=== PATIENT | male | born 1960 | race Caucasian/White ===

== ENCOUNTER 2018-10-07 20:36 | Inpatient (IN) | payer OTHER ==
[~2018-10-07] VITALS: Ht 172.7 cm; Wt 131.2 kg
[~2018-10-07 20:36] MED LIST: LOTREL 10-40 M1 EACH; METFORMIN HCL500 M1; SYNTHROID75 MCG
--- OUTSIDE RECORDS SUMMARY | 2018-10-07 20:40 | XMS REPORT ---
Author Author [facility] [place] Address Unknown Phone Unavailable Care Team Providers Care Wax Coating Machine Tender Name Role Phone Unavailable Unavailable Payers Payer Name Policy Type Policy Number Effective Date Expiration Date Problems This patient has no known problems. Allergies, Adverse Reactions, Alerts This patient has no known allergies or adverse reactions. Medications This patient has no known medications.
[2018-10-07] MEDS ORDERED: LEVOFLOXACIN 500MG/D5W 100ML 100 ML IV SCH (21:30)
[2018-10-07] MEDS ORDERED: DIPHENHYDRAMINE HCL INJ 50 MG/ML VIAL IV ONE (21:30)
[2018-10-07 21:43] LABS: BASOPHILS # (AUTO) 0.1 (0.0-0.1); BASOPHILS % 0.7 % (0.0-1.0); EOSINOPHILS # (AUTO) 1.4 (0.0-0.4); EOSINOPHILS % 13.5 % (0.0-6.0); LYMPHOCYTES # (AUTO) 2.9 (1.0-3.2); MEAN CORPUSCULAR HEMOGLOBIN 31.9 pg (28-32); MEAN CORPUSCULAR HGB CONC 33.3 g/dL (31-35); MEAN CORPUSCULAR VOLUME 95.6 fL (81-99); MONOCYTES # (AUTO) 0.7 (0.2-0.8); MONOCYTES % 6.5 % (4.4-11.3); NEUTROPHILS # (AUTO) 5.2 (2.1-6.9); NEUTROPHILS % 50.7 % (38.7-80.0); PLATELET COUNT 316 x10e3/uL (140-360); RED BLOOD COUNT 4.08 x10e6/uL (4.3-5.7); RED CELL DISTRIBUTION WIDTH 13.2 % (11.7-14.4)
[2018-10-07 22:00] LABS: ALANINE AMINOTRANSFERASE 51 IU/L (0-55); ALBUMIN 3.9 g/dL (3.5-5.0); ALBUMIN/GLOBULIN RATIO 1.2 (0.8-2.0); ALKALINE PHOSPHATASE 88 IU/L (40-150); ANION GAP 17.1 mmol/L (8-16); BLOOD UREA NITROGEN 12 mg/dL (7-26); BUN/CREATININE RATIO 12 (6-25); CALCIUM 9.3 mg/dL (8.4-10.2); CARBON DIOXIDE 24 mmol/L (22-29); CHLORIDE 100 mmol/L (98-107); CREATININE, SERUM 1.01 mg/dL (0.72-1.25); EST GLOMERULAR FILTRATION RATE > 60 ML/MIN (60-); GLUCOSE 217 mg/dL (74-118); POTASSIUM 4.1 mmol/L (3.5-5.1); SODIUM 137 mmol/L (136-145)
[2018-10-07] MEDS ORDERED: DEXTROSE 50% SYRINGE 50 ML IV PRN (22:15)
[2018-10-07] MEDS ORDERED: ONDANSETRON HCL INJ 2MG/ML 2ML 2 MG/ML VIAL IV PRN (22:15)
[2018-10-07] MEDS ORDERED: HYDRALAZINE HCL 20 MG/ML VIAL IV PRN (22:15)
[2018-10-07] MEDS ORDERED: SODIUM CHLORIDE FLUSH 10 ML SYR INJ PRN (22:15)
[2018-10-07] MEDS: VANCOMYCIN 1GM/NS 250 ML 250 ML IV SCH (22:52)
[2018-10-07 23:20] VITALS: BP 131/63
[2018-10-07 23:45] VITALS: BP 131/63
[2018-10-07 23:58] VITALS: BP 131/63
[2018-10-08] VITALS (7 sets, daily range): BP systolic 109–139; BP diastolic 55–78
[2018-10-08] MEDS ORDERED: ASPIR 8181 MG (00:57)
[2018-10-08] MEDS ORDERED: JANUVIA100 MG PO (00:57)
[2018-10-08] MEDS ORDERED: GLIPIZIDE10 MG (00:58)
[2018-10-08] MEDS ORDERED: GLIPIZIDE5 MG PO (00:58)
[2018-10-08] MEDS ORDERED: TRESIBA SC (01:02)
[2018-10-08] MEDS ORDERED: ATORVASTATIN CA40 MG PO (01:02)
[2018-10-08] MEDS: DIPHENHYDRAMINE HCL INJ 50 MG/ML VIAL IV PRN ×2 (03:18→08:14)
[2018-10-08 05:39] LABS: BASOPHILS # (AUTO) 0.1 (0.0-0.1); BASOPHILS % 0.6 % (0.0-1.0); EOSINOPHILS # (AUTO) 1.2 (0.0-0.4); EOSINOPHILS % 12.6 % (0.0-6.0); HEMATOCRIT 36.1 % (38.2-49.6); HEMOGLOBIN 12.2 g/dL (14.0-18.0); LYMPHOCYTES # (AUTO) 2.8 (1.0-3.2); LYMPHOCYTES % 30.2 % (18.0-39.1); MEAN CORPUSCULAR HGB CONC 33.8 g/dL (31-35); MEAN CORPUSCULAR VOLUME 94.8 fL (81-99); MONOCYTES # (AUTO) 0.8 (0.2-0.8); MONOCYTES % 8.5 % (4.4-11.3); NEUTROPHILS # (AUTO) 4.5 (2.1-6.9); NEUTROPHILS % 47.7 % (38.7-80.0); PLATELET COUNT 307 x10e3/uL (140-360); RED BLOOD COUNT 3.81 x10e6/uL (4.3-5.7); RED CELL DISTRIBUTION WIDTH 13.2 % (11.7-14.4)
[2018-10-08 05:57] LABS: ALANINE AMINOTRANSFERASE 38 IU/L (0-55); ALBUMIN 3.3 g/dL (3.5-5.0); ALBUMIN/GLOBULIN RATIO 1.3 (0.8-2.0); ALKALINE PHOSPHATASE 64 IU/L (40-150); ANION GAP 12.5 mmol/L (8-16); BLOOD UREA NITROGEN 12 mg/dL (7-26); BUN/CREATININE RATIO 14 (6-25); CALCIUM 8.6 mg/dL (8.4-10.2); CARBON DIOXIDE 24 mmol/L (22-29); CHLORIDE 104 mmol/L (98-107); CREATININE, SERUM 0.87 mg/dL (0.72-1.25); EST GLOMERULAR FILTRATION RATE > 60 ML/MIN (60-); GLUCOSE 169 mg/dL (74-118); POTASSIUM 4.5 mmol/L (3.5-5.1); SODIUM 136 mmol/L (136-145)
[2018-10-08] MEDS: GLIPIZIDE 5 MG TAB PO SCH ×2 (08:00→17:00)
[2018-10-08] MEDS: METFORMIN HCL 500 MG TAB CR PO SCH ×2 (08:00→17:00)
[2018-10-08] MEDS: METHYLPREDNISOLONE SOD SUCC 40 MG/ML VIAL 1ML IV SCH ×2 (08:13→21:07)
[2018-10-08] MEDS: INSULIN REGULAR, HUMAN 100 UNIT/1 ML 3ML VIAL SQ SCH ×4 (08:13→21:32)
[2018-10-08] MEDS: ASPIRIN 81 MG CHEW TAB PO SCH (08:13)
[2018-10-08] MEDS: PANTOPRAZOLE SOD 40 MG TABEC PO SCH (08:14)
[2018-10-08] MEDS: LEVOTHYROXINE SODIUM 50 MCG TAB PO SCH (08:14)
[2018-10-08] MEDS: TRESIBA SC SCH (08:14)
[2018-10-08] MEDS: BENAZEPRIL HCL 10 MG TAB PO SCH (08:14)
[2018-10-08] MEDS: SITAGLIPTIN 100 MG TAB PO SCH (08:14)
[2018-10-08] MEDS: AMLODIPINE BESYLATE 10 MG TAB PO SCH (08:14)
[2018-10-08] MEDS ORDERED: LEVOTHYROXINE SODIUM 75 MCG TAB PO SCH (09:00)
--- NOTE | 2018-10-08 09:15 | History and Physical ---
CHIEF COMPLAINT: Left leg redness, swelling since last 1 month and rash all over body since last 3 weeks. HISTORY OF PRESENT MEDICAL ILLNESS: Alnqv[age][id number][age][id number]-old pleasant male with past medical history of multiple medical problems, was admitted at [facility] last night with above complaints. Patient was seen by PCP, Dr. Hiram Murry for more than a month back with chief complaint of left lower extremity redness, swelling, wound after patient had left leg injury. Patient was started on clindamycin and Cipro. Patient took that for 10 days, then clindamycin was stopped. Then, patient was switched to Bactrim plus Cipro. Patient left leg wound got better, the redness and swelling was improving. Patient was given Bactrim for 10 days, and then left leg redness, swelling, wound was getting better. In the meantime when patient was started on clindamycin and Cipro, patient developed rash, generalized itching, severely itching rash. Then, patient came to my office yesterday with left leg swelling and redness coming back and generalized rash and itching persisting, and hence patient was sent to ER. In emergency room, patient was seen by emergency room doctor and admitted for further care and treatment. At present, the patient is lying comfortably in bed, in no apparent distress. No chest pain, no shortness of breath. No nausea, vomiting, diarrhea. No abdominal pain or loss of consciousness. No palpitations, no headaches. No hematemesis, no melena, no hematuria, no dysuria. No fever, no cough. No witnessed seizures. PAST MEDICAL HISTORY: 1. Diabetes mellitus type 2. 2. Hypertension. 3. Hyperlipidemia. 4. Morbid obesity. 5. Obstructive sleep apnea, on BiPAP. MEDICATIONS: As listed in chart. ALLERGIES: PENICILLIN. SURGICAL HISTORY: Lower back surgery many years back. SOCIAL HISTORY: No smoking, no alcohol, no illicit drug use. Lives with family. FAMILY HISTORY: Noncontributory. REVIEW OF SYSTEMS: As per HPI. PHYSICAL EXAMINATION: GENERAL: Patient is alert, awake, oriented x3, in no apparent distress, lying in bed. VITAL SIGNS: Temperature is 97, pulse is 67 per minute, respiratory rate is 18 per minute, blood pressure is 116/70, saturation is 96% on room air. SKIN: No cyanosis, no icterus, no pallor. HEENT: Normocephalic, atraumatic. PERRLA plus. NECK: Soft and supple. No JVD, no carotid bruit, no lymphadenopathy. LUNGS: Air entry bilaterally equal. HEART: S1 and S2. No murmur, no gallop, no rub. ABDOMEN: Soft, nontender. Bowel sounds plus. PROSPECTING DRILLER: Alert, awake, and oriented x3. No focal deficits. EXTREMITIES: No cyanosis, no clubbing, no edema. Peripheral pulses present. No calf pain. Left lower extremity swelling, redness plus. Skin, generalized macular rash plus. LABS: This morning, sodium 136, potassium 4.5, chloride 104, bicarb 24, BUN 12, creatinine 0.8, glucose 116. LFTs noted. White count 9.3, hemoglobin 12.2, hematocrit 36.1, platelets 307,000. Eosinophil 13.5, high. Cultures pending. ASSESSMENT: 1. Left lower extremity cellulitis. 2. Dermatitis, likely allergic, could be antibiotics related. 3. History of diabetes mellitus type 2. 4. Hypertension. 5. Hyperlipidemia. 6. Obstructive sleep apnea. PLAN: Admit patient to medical floor. Patient was started on IV vancomycin. Pancultures. ID consultation, Dr. Spence. Review dose of Solu-Medrol 40 mg IV q.12h. for 1 day for possible allergic dermatitis. Will also get venous Doppler of left lower extremity. Further care and treatment as per clinical course of patient in the hospital. Discussed with patient in detail. Job#: [id number]
[2018-10-08] MEDS: VANCOMYCIN 1GM/NS 250 ML 250 ML IV SCH ×2 (09:28→21:19)
[2018-10-08] MEDS: ENOXAPARIN SOD INJ 40 MG/0.4 ML SYR SC SCH (16:50)
[2018-10-08] MEDS ORDERED: NON-FORMULARY MEDICATION (Atorvastatin Calcium 40 MG) PO SCH (21:00)
[2018-10-08] MEDS: ATORVASTATIN 40 MG TAB PO SCH (21:07)
[2018-10-09] VITALS (8 sets, daily range): BP systolic 112–127; BP diastolic 69–79
[2018-10-09] MEDS: LEVOTHYROXINE SODIUM 50 MCG TAB PO SCH (06:42)
[2018-10-09] MEDS: GLIPIZIDE 5 MG TAB PO SCH ×2 (08:00→17:00)
[2018-10-09] MEDS: METFORMIN HCL 500 MG TAB CR PO SCH ×2 (08:00→17:00)
[2018-10-09] MEDS ORDERED: DIPHENHYDRAMINE HCL 25 MG CAP PO PRN (08:15)
[2018-10-09] MEDS: TRESIBA SC SCH (09:00)
[2018-10-09] MEDS: AMLODIPINE BESYLATE 10 MG TAB PO SCH (09:00)
[2018-10-09] MEDS: BENAZEPRIL HCL 10 MG TAB PO SCH (09:00)
[2018-10-09] MEDS: ASPIRIN 81 MG CHEW TAB PO SCH (09:00)
[2018-10-09] MEDS: SITAGLIPTIN 100 MG TAB PO SCH (09:00)
[2018-10-09] MEDS: PANTOPRAZOLE SOD 40 MG TABEC PO SCH (09:49)
[2018-10-09] MEDS: INSULIN REGULAR, HUMAN 100 UNIT/1 ML 3ML VIAL SQ SCH ×4 (09:50→21:42)
[2018-10-09] MEDS: METHYLPREDNISOLONE SOD SUCC 40 MG/ML VIAL 1ML IV SCH ×2 (09:50→21:42)
[2018-10-09] MEDS: VANCOMYCIN 1GM/NS 250 ML 250 ML IV SCH ×2 (09:53→21:42)
[2018-10-09] MEDS: MUPIROCIN 2% OINT 22 GM TUBE TOP SCH (09:53)
--- NOTE | 2018-10-09 14:43 | Consultation ---
DATE OF CONSULTATION: October 08, 2018 REASON FOR CONSULTATION: Cellulitis of the leg failing oral antibiotic and skin rash. HISTORY OF PRESENT ILLNESS: Mr. Singleton is a very pleasant gentleman. I did see him on October 08, 2018. I also discussed the case on the day of admission, which was October 07, 2018, and discussed the case with the emergency room physician. Mr. Singleton is a 57-year-old gentleman. He started to have redness and swelling of his right leg. He saw a physician and originally given clindamycin and Cipro. No improvement, but he started to have a rash a few days later. Clindamycin was stopped and switched to Bactrim. The rash persisted and got worse. The patient came to the emergency room because he was not feeling well and itching all over. The patient was admitted. When I saw the patient, he was also started on vancomycin and cefepime and he was given steroid. He is feeling better. PAST MEDICAL HISTORY: Hypertension. He also has history of diabetes and hypothyroidism. PAST SURGICAL HISTORY: He denies. ALLERGIES: NKA. SOCIAL HISTORY: Does not smoke. No drug abuse or alcohol abuse. FAMILY HISTORY: Noncontributory. REVIEW OF SYSTEMS HEENT: Negative. PULMONARY: Negative. CARDIAC: Negative. : Negative. SKIN: There is rash as mentioned above with itching all over. There are redness and swelling noted of the leg. MEDICATIONS: He is on amlodipine and Norvasc. He is on Lipitor, atorvastatin, Lotensin, Lovenox, insulin, Synthroid, metformin. PHYSICAL EXAMINATION GENERAL: Alert and oriented, does not seem to be in acute distress. VITALS: Stable. Currently afebrile. HEENT: Normocephalic. Does not appear icteric. NECK: Supple. CHEST: Clear. COR: No murmur. ABDOMEN: Soft. Bowel sounds present. No tenderness. EXTREMITIES: There is a maculopapular rash diffusely all over his body. The leg has erythema but seems to be better. Laboratory data reviewed and chart reviewed. IMPRESSION 1. Cellulitis of the leg. Failed oral antibiotics. Will put him on vancomycin. 2. Dermatitis, allergic reaction. Agree with Benadryl and a short course of steroids. 3. Hypertension. 4. Hypothyroidism. 5. Diabetes mellitus. Will follow with you. Discussed with internal medicine. Discussed with ER physician. Job#: [id number] MH
[2018-10-09] MEDS: ENOXAPARIN SOD INJ 40 MG/0.4 ML SYR SC SCH (17:12)
[2018-10-09] MEDS ORDERED: SODIUM CHLORIDE 0.9% 250ML 250 ML ONE (21:30)
[2018-10-09] MEDS: ATORVASTATIN 40 MG TAB PO SCH (21:42)
[2018-10-10] VITALS (7 sets, daily range): BP systolic 110–139; BP diastolic 73–87
[2018-10-10 07:42] LABS: BASOPHILS % 0.2 % (0.0-1.0); HEMOGLOBIN 12.4 g/dL (14.0-18.0); LYMPHOCYTES # (AUTO) 1.6 (1.0-3.2); LYMPHOCYTES % 13.2 % (18.0-39.1); MEAN CORPUSCULAR HEMOGLOBIN 32.7 pg (28-32); MEAN CORPUSCULAR HGB CONC 35.4 g/dL (31-35); MEAN CORPUSCULAR VOLUME 92.3 fL (81-99); MONOCYTES # (AUTO) 0.7 (0.2-0.8); MONOCYTES % 5.5 % (4.4-11.3); NEUTROPHILS # (AUTO) 9.4 (2.1-6.9); NEUTROPHILS % 80.2 % (38.7-80.0); PLATELET COUNT 274 x10e3/uL (140-360); RED BLOOD COUNT 3.79 x10e6/uL (4.3-5.7); RED CELL DISTRIBUTION WIDTH 13.2 % (11.7-14.4)
[2018-10-10 08:01] LABS: CARBON DIOXIDE 25 mmol/L (22-29); CHLORIDE 102 mmol/L (98-107); POTASSIUM 4.5 mmol/L (3.5-5.1); SODIUM 136 mmol/L (136-145)
[2018-10-10 08:02] LABS: ALANINE AMINOTRANSFERASE 35 IU/L (0-55); ALBUMIN 3.5 g/dL (3.5-5.0); ALBUMIN/GLOBULIN RATIO 1.2 (0.8-2.0); ALKALINE PHOSPHATASE 61 IU/L (40-150); ANION GAP 13.5 mmol/L (8-16); BLOOD UREA NITROGEN 18 mg/dL (7-26); BUN/CREATININE RATIO 20 (6-25); CALCIUM 9.1 mg/dL (8.4-10.2); CREATININE, SERUM 0.91 mg/dL (0.72-1.25); EST GLOMERULAR FILTRATION RATE > 60 ML/MIN (60-); GLUCOSE 226 mg/dL (74-118)
[2018-10-10] MEDS: LEVOTHYROXINE SODIUM 50 MCG TAB PO SCH (08:26)
[2018-10-10] MEDS: METFORMIN HCL 500 MG TAB CR PO SCH ×2 (08:26→17:22)
[2018-10-10] MEDS: PANTOPRAZOLE SOD 40 MG TABEC PO SCH (08:26)
[2018-10-10] MEDS: GLIPIZIDE 5 MG TAB PO SCH ×2 (08:27→17:22)
[2018-10-10] MEDS: METHYLPREDNISOLONE SOD SUCC 40 MG/ML VIAL 1ML IV SCH (08:27)
[2018-10-10] MEDS: ASPIRIN 81 MG CHEW TAB PO SCH (08:29)
[2018-10-10] MEDS: SITAGLIPTIN 100 MG TAB PO SCH (08:29)
[2018-10-10] MEDS: INSULIN REGULAR, HUMAN 100 UNIT/1 ML 3ML VIAL SQ SCH ×4 (08:48→21:07)
[2018-10-10] MEDS: BENAZEPRIL HCL 10 MG TAB PO SCH (08:48)
[2018-10-10] MEDS: VANCOMYCIN 1GM/NS 250 ML 250 ML IV SCH ×2 (08:48→21:05)
[2018-10-10] MEDS: AMLODIPINE BESYLATE 10 MG TAB PO SCH (08:48)
[2018-10-10] MEDS: TRESIBA SC SCH (08:49)
[2018-10-10] MEDS: MUPIROCIN 2% OINT 22 GM TUBE TOP SCH (08:49)
--- NOTE | 2018-10-10 15:06 | Progress Note ---
DATE: SUBJECTIVE: Mr. Singleton is doing better and redness seems to be better. PHYSICAL EXAMINATION GENERAL: He is currently alert, oriented, does not seem to be in acute distress. VITAL SIGNS: Stable. Currently afebrile. HEENT: He is nonicteric. NECK: Supple. CHEST: Clear. HEART: S1, S2. No murmur. ABDOMEN: Soft. EXTREMITIES: The legs seem to be better. The rash has faded. IMPRESSION 1. Cellulitis. 2. Dermatitis. 3. Allergic reaction. Seems to be better. Can switch to oral prednisone 5 mg p.o. daily for a few more days and local hydrocortisone. Cellulitis is better. Can probably discharge home tomorrow. Since we are not so sure which antibiotic lead to this, we will try oral Zyvox 600 mg p.o. b.i.d. for 7 days. Follow up as an outpatient. Job#: [id number] LPA
[2018-10-10] MEDS: ENOXAPARIN SOD INJ 40 MG/0.4 ML SYR SC SCH (17:22)
[2018-10-10] MEDS: ATORVASTATIN 40 MG TAB PO SCH (21:05)
[2018-10-11] VITALS: BP 116/47
[2018-10-11 04:00] VITALS: BP 135/80
[2018-10-11] MEDS: INSULIN REGULAR, HUMAN 100 UNIT/1 ML 3ML VIAL SQ SCH ×2 (07:30→12:49)
[2018-10-11 08:00] VITALS: BP 131/93
[2018-10-11 08:16] VITALS: BP 131/93
[2018-10-11] MEDS: GLIPIZIDE 5 MG TAB PO SCH (08:27)
[2018-10-11] MEDS: METFORMIN HCL 500 MG TAB CR PO SCH (08:27)
[2018-10-11] MEDS: PANTOPRAZOLE SOD 40 MG TABEC PO SCH (08:27)
[2018-10-11] MEDS: LEVOTHYROXINE SODIUM 50 MCG TAB PO SCH (08:27)
[2018-10-11] MEDS: SITAGLIPTIN 100 MG TAB PO SCH (08:28)
[2018-10-11] MEDS: ASPIRIN 81 MG CHEW TAB PO SCH (08:28)
[2018-10-11] MEDS: BENAZEPRIL HCL 10 MG TAB PO SCH (08:28)
[2018-10-11] MEDS: MUPIROCIN 2% OINT 22 GM TUBE TOP SCH (08:29)
[2018-10-11] MEDS: AMLODIPINE BESYLATE 10 MG TAB PO SCH (08:29)
[2018-10-11] MEDS: TRESIBA SC SCH (08:29)
[2018-10-11 09:00] LABS: BASOPHILS # (AUTO) 0.1 (0.0-0.1); BASOPHILS % 0.4 % (0.0-1.0); EOSINOPHILS # (AUTO) 0.1 (0.0-0.4); EOSINOPHILS % 0.5 % (0.0-6.0); HEMATOCRIT 36.7 % (38.2-49.6); HEMOGLOBIN 13.1 g/dL (14.0-18.0); LYMPHOCYTES % 32.8 % (18.0-39.1); MEAN CORPUSCULAR HEMOGLOBIN 32.6 pg (28-32); MEAN CORPUSCULAR HGB CONC 35.7 g/dL (31-35); MEAN CORPUSCULAR VOLUME 91.3 fL (81-99); MONOCYTES # (AUTO) 1.1 (0.2-0.8); MONOCYTES % 9.4 % (4.4-11.3); NEUTROPHILS # (AUTO) 6.8 (2.1-6.9); NEUTROPHILS % 56.1 % (38.7-80.0); PLATELET COUNT 252 x10e3/uL (140-360); RED BLOOD COUNT 4.02 x10e6/uL (4.3-5.7); RED CELL DISTRIBUTION WIDTH 13.2 % (11.7-14.4)
[2018-10-11] MEDS ORDERED: METHYLPREDNISOLONE SOD SUCC 40 MG/ML VIAL 1ML IV SCH (09:00)
[2018-10-11 09:16] LABS: ANION GAP 14.1 mmol/L (8-16); BLOOD UREA NITROGEN 18 mg/dL (7-26); BUN/CREATININE RATIO 18 (6-25); CALCIUM 9.1 mg/dL (8.4-10.2); CARBON DIOXIDE 27 mmol/L (22-29); CHLORIDE 101 mmol/L (98-107); CREATININE, SERUM 1.02 mg/dL (0.72-1.25); EST GLOMERULAR FILTRATION RATE > 60 ML/MIN (60-); GLUCOSE 169 mg/dL (74-118); POTASSIUM 4.1 mmol/L (3.5-5.1); SODIUM 138 mmol/L (136-145)
[2018-10-11] MEDS: VANCOMYCIN 1GM/NS 250 ML 250 ML IV SCH (10:00)
[2018-10-11 11:52] VITALS: BP 121/76
--- NOTE | 2018-10-11 14:49 | Progress Note ---
DATE: INFECTIOUS DISEASE PROGRESS NOTE SUBJECTIVE: Mr. Singleton is doing well. His review of systems is unremarkable. His leg is better. PHYSICAL EXAMINATION GENERAL: He is currently alert and oriented, does not seem to be in acute distress. VITAL SIGNS: Stable, currently afebrile. HEENT: Not icteric. NECK: Supple. CHEST: Clear. ABDOMEN: Soft. EXTREMITIES: The leg erythema is better. IMPRESSION AND PLAN 1. Patient with cellulitis of the leg, better. 2. Allergic dermatitis. He can change to Zyvox 600 mg p.o. b.i.d. since I am not so sure which drug led to this allergic reaction. Bib Grossman as an outpatient. Followup as an outpatient. Job#: [id number] PAVAN
[2018-10-11] MEDS ORDERED: ZYVOX600 MG PO (15:19)
== END 2018-10-11 15:57 | disposition home or self-care (01) | DRG 603 ==
LOC: ER 20:36 → ERHOLD 22:22 → MED/SURG3 22:59
PROVIDERS: ADMIT Internal Medicine; ATTEND Internal Medicine
DX: L03.116 Cellulitis of left lower limb (principal); Z68.41 Body mass index [BMI] 40.0-44.9, adult; I10 Essential (primary) hypertension; E03.9 Hypothyroidism, unspecified; E78.5 Hyperlipidemia, unspecified; K21.9 Gastro-esophageal reflux disease without esophagitis; E11.9 Type 2 diabetes mellitus without complications; E66.01 Morbid (severe) obesity due to excess calories; G47.33 Obstructive sleep apnea (adult) (pediatric); L27.0 Generalized skin eruption due to drugs and medicaments taken internally; T36.95XA Adverse effect of unspecified systemic antibiotic, initial encounter; Z79.82 Long term (current) use of aspirin; Z79.4 Long term (current) use of insulin; Z88.0 Allergy status to penicillin; Z88.2 Allergy status to sulfonamides
CPT/HCPCS: 36415; 80048; 80053; 80202; 82948; 85025; 87040; 93971; 99284; J1200; J1650; J1956; J2920; J3370; J7050

== ENCOUNTER 2020-10-25 06:52 | Emergency (ER) | payer OTHER ==
[~2020-10-25] VITALS: Ht 172.7 cm; Wt 135.2 kg
[~2020-10-25 06:52] MED LIST changes: +ASPIR 8181 MG; +ATORVASTATIN CA40 MG PO; +GLIPIZIDE10 MG; +GLIPIZIDE5 MG PO; +JANUVIA100 MG PO; +TRESIBA SC; +ZYVOX600 MG PO
== END 2020-10-25 08:26 | disposition home or self-care (01) ==
LOC: FSED 07:25
DX: S93.602A Unspecified sprain of left foot, initial encounter (principal); W00.0XXA Fall on same level due to ice and snow, initial encounter; Y93.01 Activity, walking, marching and hiking
CPT/HCPCS: 99283

== ENCOUNTER 2023-02-23 12:31 | Inpatient (IN) | payer OTHER ==
[~2023-02-23] VITALS: Ht 172.7 cm; Wt 128.4 kg
[2023-02-23] VITALS (9 sets, daily range): BP systolic 111–124; BP diastolic 68–78; PULSE 58–87; RESP 18–20; TEMP 98.3–98.7; O2SAT 96–99
[~2023-02-23 12:31] MED LIST changes: +FARXIGA10 MG PO
[2023-02-23] MEDS ORDERED: ALBUTEROL/IPRATROPIUM 3 ML NEB ONE (13:00)
[2023-02-23] MEDS ORDERED: ALBUTEROL/IPRATROPIUM 3 ML NEB NEB ONE (13:00)
[2023-02-23] MEDS ORDERED: SODIUM CHLORIDE 0.9% 250ML 250 ML ONE (13:45)
[2023-02-23] MEDS: ALBUTEROL/IPRATROPIUM 3 ML NEB NEB SCH ×3 (14:20→23:10)
[2023-02-23] MEDS ORDERED: PNEUMOCOCCAL VACCINE POLYVALENT 23 MCG/0.5 ML VIAL IM SCH (16:35)
[2023-02-23] MEDS ORDERED: INFLUENZA VIRUS VAC SPLIT INJ 0.5 ML SYR IM SCH (16:35)
[2023-02-23] MEDS: SODIUM CHLORIDE 0.9% 1000ML 1,000 ML IV SCH (16:39)
[2023-02-23] MEDS ORDERED: GUAIFENESIN/DEXTROMETHORPHAN LIQD 5 ML UDC NG PRN (17:15)
[2023-02-23] MEDS: BENZONATATE 100 MG CAP PO SCH (21:01)
[2023-02-23] MEDS: ATORVASTATIN 20 MG TAB PO SCH (21:01)
[2023-02-24] VITALS (13 sets, daily range): BP systolic 123–144; BP diastolic 68–77; PULSE 73–99; RESP 16–20; TEMP 97.5–98.8; O2SAT 91–99
[2023-02-24] MEDS: SODIUM CHLORIDE 0.9% 1000ML 1,000 ML IV SCH ×4 (01:08→21:30)
[2023-02-24] MEDS: ALBUTEROL/IPRATROPIUM 3 ML NEB NEB SCH ×6 (03:05→23:15)
[2023-02-24 06:36] LABS: BASOPHILS # (AUTO) 0.1 (0.0-0.1); BASOPHILS % 0.4 % (0.0-1.0); EOSINOPHILS # (AUTO) 0.2 (0.0-0.4); EOSINOPHILS % 1.8 % (0.0-6.0); HEMATOCRIT 34.9 % (38.2-49.6); HEMOGLOBIN 11.5 g/dL (14.0-18.0); LYMPHOCYTES # (AUTO) 2.1 (1.0-3.2); LYMPHOCYTES % 16.2 % (18.0-39.1); MEAN CORPUSCULAR HEMOGLOBIN 31.9 pg (28-32); MEAN CORPUSCULAR VOLUME 96.9 fL (81-99); MONOCYTES % 7.6 % (4.4-11.3); NEUTROPHILS # (AUTO) 9.2 (2.1-6.9); NEUTROPHILS % 72.8 % (38.7-80.0); PLATELET COUNT 420 x10e3/uL (140-360); RED CELL DISTRIBUTION WIDTH 13.3 % (11.7-14.4)
[2023-02-24] MEDS ORDERED: ALBUTEROL/IPRATROPIUM 3 ML NEB ONE (07:07)
[2023-02-24 07:30] LABS: CHOL/HDL RATIO 3.3 (3.9-4.7)
[2023-02-24 07:45] LABS: ANION GAP 14.9 mmol/L (8-16); CALCIUM 9.2 mg/dL (8.4-10.2); CREATININE, SERUM 0.88 mg/dL (0.72-1.25); POTASSIUM 4.9 mmol/L (3.5-5.1)
[2023-02-24] MEDS: LEVOTHYROXINE SODIUM 75 MCG TAB PO SCH ×2 (08:21→08:52)
[2023-02-24] MEDS: BENZONATATE 100 MG CAP PO SCH ×3 (08:52→20:29)
[2023-02-24] MEDS: ASPIRIN 81 MG CHEW TAB PO SCH (08:53)
[2023-02-24] MEDS ORDERED: SITAGLIPTIN 100 MG TAB PO SCH (09:00)
[2023-02-24] MEDS ORDERED: ENOXAPARIN SOD INJ 40 MG/0.4 ML SYR SC SCH (17:00)
[2023-02-24] MEDS: ATORVASTATIN 20 MG TAB PO SCH (20:29)
[2023-02-25] VITALS: BP 133/73; PULSE 91; RESP 19; TEMP 99.1; O2SAT 91
[2023-02-25 02:50] VITALS: PULSE 93; RESP 20; O2SAT 93
[2023-02-25] MEDS: ALBUTEROL/IPRATROPIUM 3 ML NEB NEB SCH ×2 (02:50→07:14)
[2023-02-25] MEDS: SODIUM CHLORIDE 0.9% 1000ML 1,000 ML IV SCH (05:30)
[2023-02-25 07:14] VITALS: PULSE 78; RESP 18; O2SAT 94
[2023-02-25] MEDS ORDERED: LORATADINE10 MG PO (07:33)
[2023-02-25] MEDS ORDERED: Benzonatate PO (07:33)
[2023-02-25] MEDS ORDERED: AZITHROMYCIN250 MG PO (07:33)
[2023-02-25 08:44] VITALS: BP 109/71; PULSE 87; RESP 20; TEMP 98.3; O2SAT 98
[2023-02-25] MEDS: ASPIRIN 81 MG CHEW TAB PO SCH (08:49)
[2023-02-25] MEDS: BENZONATATE 100 MG CAP PO SCH (08:49)
[2023-02-25 09:02] VITALS: BP 109/71; PULSE 87; RESP 20; TEMP 98.3; O2SAT 98
== END 2023-02-25 09:05 | disposition home or self-care (01) | DRG 193 ==
LOC: FSED 12:39 → ERHOLD 13:17 → UNDOADMOB 13:17 → ERHOLD 13:33 → MED/SURG2 13:34 → OBSVTOIN 02-24 08:42
PROVIDERS: ADMIT Internal Medicine; ATTEND Internal Medicine
DX: J18.9 Pneumonia, unspecified organism (principal); J96.01 Acute respiratory failure with hypoxia; Z68.41 Body mass index [BMI] 40.0-44.9, adult; I10 Essential (primary) hypertension; E03.9 Hypothyroidism, unspecified; E11.9 Type 2 diabetes mellitus without complications; G47.33 Obstructive sleep apnea (adult) (pediatric); E66.01 Morbid (severe) obesity due to excess calories; Z79.890 Hormone replacement therapy
CPT/HCPCS: 36415; 71046; 80048; 80053; 80061; 81003; 82948; 83036; 83880; 85025; 87070; 87205; 94799; 99284; G0378; J1650; J7030; J7050

== ENCOUNTER 2025-06-08 06:18 | Inpatient (IN) | payer OTHER ==
[2025-06-07 09:16] LABS: BASOPHILS % 0.5 % (0.0-1.0); EOSINOPHILS % 3.0 % (0.0-6.0); LYMPHOCYTES % 22.1 % (18.0-39.1); MONOCYTES % 7.9 % (4.4-11.3); NEUTROPHILS % 66.2 % (38.7-80.0); RED CELL DISTRIBUTION WIDTH 14.4 % (11.7-14.4)
[2025-06-07 10:07] LABS: EST GLOMERULAR FILTRATION RATE 76.0 ML/MIN (>=60)
[2025-06-08] VITALS (7 sets, daily range): BP systolic 120–199; BP diastolic 79–155; PULSE 67–77; RESP 16–20; TEMP 97.7–98.9; O2SAT 93–97
[~2025-06-08] VITALS: Ht 172.7 cm; Wt 122.5 kg
[~2025-06-08 06:18] MED LIST changes: +AZITHROMYCIN250 MG PO; +BENAZEPRIL HCL20 MG; +Benzonatate PO; +CARAFATE1 GM/10 ML PO; +FLOMAX0.4 MG PO; +LORATADINE10 MG PO; +OZEMPIC2 MG/0.75; +TRESIBA FL100 UNIT/1
[2025-06-08] MEDS: LEVOFLOXACIN 500MG/D5W 100ML 100 ML IV ONE (07:18)
[2025-06-08] MEDS: GENTAMICIN 80MG/NS 100 ML 200 ML IV ONE (07:19)
[2025-06-08] MEDS ORDERED: FENTANYL CITRATE/PF 100MCG/2 ML INJ ONE ×2 (08:59→09:36)
[2025-06-08] MEDS ORDERED: MIDAZOLAM HCL 2 MG/2 ML VIAL ONE (08:59)
[2025-06-08] MEDS ORDERED: PROPOFOL IV EMULSION 10 MG/ML 20 ML VIAL ONE (08:59)
[2025-06-08] MEDS ORDERED: ROCURONIUM BROMIDE 1 ML IV ONE (09:19)
[2025-06-08] MEDS ORDERED: DIPHENHYDRAMINE HCL INJ 50 MG/ML VIAL ONE (09:42)
[2025-06-08] MEDS ORDERED: ONDANSETRON HCL INJ 2MG/ML 2ML 2 MG/ML VIAL ONE (09:42)
[2025-06-08] MEDS ORDERED: DEXAMETHASONE SOD PHOS INJ 4 MG/ML SDV ONE (09:42)
[2025-06-08] MEDS ORDERED: FUROSEMIDE INJ 10 MG/ML 4 ML VIAL ONE (10:34)
[2025-06-08] MEDS ORDERED: PHENAZOPYRIDINE HCL 100 MG TAB PO PRN (10:45)
[2025-06-08] MEDS ORDERED: ACETAMINOPHEN/CODEINE 300MG - 30MG TAB PO PRN (10:45)
[2025-06-08] MEDS ORDERED: ACETAMINOPHEN 1000 MG/100 ML IV PRN (10:45)
[2025-06-08] MEDS ORDERED: DIPHENHYDRAMINE HCL 25 MG CAP PO PRN ×2 (10:45→13:15)
[2025-06-08 11:04] LABS: BASOPHILS % 0.7 % (0.0-1.0); EOSINOPHILS % 3.1 % (0.0-6.0); LYMPHOCYTES % 30.0 % (18.0-39.1); MONOCYTES % 5.0 % (4.4-11.3); NEUTROPHILS % 60.3 % (38.7-80.0); RED CELL DISTRIBUTION WIDTH 14.4 % (11.7-14.4)
[2025-06-08 11:33] LABS: EST GLOMERULAR FILTRATION RATE 86.0 ML/MIN (>=60)
[2025-06-08] MEDS: PHENAZOPYRIDINE HCL 100 MG TAB ONE (11:48)
[2025-06-08] MEDS ORDERED: DEXTROSE 50% SYRINGE 50 ML IV PRN ×2 (13:15)
[2025-06-08] MEDS ORDERED: LIDOCAINE 4% PATCH TP PRN (13:15)
[2025-06-08] MEDS ORDERED: POTASSIUM CHLORIDE 20 MEQ TAB CR PO PRN (13:15)
[2025-06-08] MEDS ORDERED: ALBUTEROL/IPRATROPIUM 3 ML NEB NEB PRN (13:15)
[2025-06-08] MEDS ORDERED: SIMETHICONE 80 MG CHEW PO PRN (13:15)
[2025-06-08] MEDS ORDERED: BENZONATATE 100 MG CAP PO PRN (13:15)
[2025-06-08] MEDS ORDERED: DOCUSATE SODIUM 100 MG CAP PO PRN (13:15)
[2025-06-08] MEDS ORDERED: GENTAMICIN 80MG/NS 100 ML 100 ML IV SCH (14:00)
[2025-06-08] MEDS: SODIUM CHLORIDE 0.9% 1000ML 1,000 ML IV SCH (16:50)
[2025-06-08] MEDS: INSULIN LISPRO 100 UNIT/1 ML 3ML VIAL SQ SCH (16:54)
[2025-06-08] MEDS: SENNA-S TABLET PO SCH (16:55)
[2025-06-08] MEDS: ATORVASTATIN 20 MG TAB PO SCH (20:29)
[2025-06-08] MEDS: MELATONIN 5 MG TABLET PO PRN (22:39)
[2025-06-08] MEDS: ONDANSETRON HCL INJ 2MG/ML 2ML 2 MG/ML VIAL IV PRN (22:39)
[2025-06-09] VITALS (10 sets, daily range): BP systolic 112–166; BP diastolic 48–87; PULSE 67–80; RESP 16–21; TEMP 97.7–99.7; O2SAT 95–99
[2025-06-09 05:27] LABS: BASOPHILS % 0.2 % (0.0-1.0); EOSINOPHILS % 0.0 % (0.0-6.0); LYMPHOCYTES % 8.2 % (18.0-39.1); MONOCYTES % 5.0 % (4.4-11.3); NEUTROPHILS % 86.1 % (38.7-80.0); RED CELL DISTRIBUTION WIDTH 14.0 % (11.7-14.4)
[2025-06-09] MEDS: HYDRALAZINE HCL 20 MG/ML VIAL IV PRN (05:34)
[2025-06-09] MEDS: LEVOTHYROXINE SODIUM 75 MCG TAB PO SCH (05:36)
[2025-06-09 05:58] LABS: EST GLOMERULAR FILTRATION RATE 80.0 ML/MIN (>=60)
[2025-06-09] MEDS: PANTOPRAZOLE SOD 40 MG TABEC PO SCH (07:30)
[2025-06-09] MEDS: INSULIN GLARGINE 100 UNITS/ML VIAL SQ SCH (08:20)
[2025-06-09] MEDS ORDERED: FINASTERIDE5 MG PO (08:42)
[2025-06-09] MEDS: BENAZEPRIL HCL 10 MG TAB PO SCH (10:02)
[2025-06-10] VITALS (12 sets, daily range): BP systolic 98–120; BP diastolic 55–79; PULSE 66–82; RESP 16–19; TEMP 97.5–99.5; O2SAT 93–97
[2025-06-10 05:20] LABS: BASOPHILS % 0.3 % (0.0-1.0); EOSINOPHILS % 0.8 % (0.0-6.0); LYMPHOCYTES % 20.7 % (18.0-39.1); MONOCYTES % 7.7 % (4.4-11.3); NEUTROPHILS % 70.0 % (38.7-80.0); RED CELL DISTRIBUTION WIDTH 14.3 % (11.7-14.4)
[2025-06-10 06:06] LABS: EST GLOMERULAR FILTRATION RATE 95.0 ML/MIN (>=60)
[2025-06-11 04:00] VITALS: BP 109/67; PULSE 74; RESP 16; TEMP 97.9; O2SAT 96
[2025-06-11 06:42] LABS: BASOPHILS % 0.4 % (0.0-1.0); EOSINOPHILS % 1.1 % (0.0-6.0); LYMPHOCYTES % 16.2 % (18.0-39.1); MONOCYTES % 9.1 % (4.4-11.3); NEUTROPHILS % 72.6 % (38.7-80.0); RED CELL DISTRIBUTION WIDTH 14.1 % (11.7-14.4)
[2025-06-11 07:06] VITALS: PULSE 79; RESP 18; O2SAT 94
[2025-06-11 07:17] LABS: EST GLOMERULAR FILTRATION RATE 80.0 ML/MIN (>=60)
[2025-06-11 10:41] VITALS: BP 103/55; PULSE 70; RESP 16; TEMP 99.1; O2SAT 98
[2025-06-11 12:41] VITALS: BP 103/55; PULSE 70; RESP 16; TEMP 99.1; O2SAT 98
[2025-06-11 13:35] VITALS: BP 103/55; PULSE 70; RESP 16; TEMP 99.1; O2SAT 98
[2025-06-11] MEDS: SODIUM CHLORIDE 0.9% 1000ML 1,000 ML ONE (14:23)
== END 2025-06-11 22:25 | disposition home or self-care (01) | DRG 713 ==
LOC: OR 06:18 → PACU V 10:57 → MED/SURG 12:31
PROVIDERS: ADMIT Internal Medicine; ATTEND Internal Medicine
PROC: 0T9B8ZZ Drainage of Bladder, Via Natural or Artificial Opening Endoscopic (ICD-10-PCS; 2025-06-08)
PROC: BT141ZZ Fluoroscopy of Kidneys, Ureters and Bladder using Low Osmolar Contrast (ICD-10-PCS; 2025-06-08)
PROC: 0VT08ZZ Resection of Prostate, Via Natural or Artificial Opening Endoscopic (ICD-10-PCS; principal; 2025-06-08 09:05)
PROC: 0T7D8ZZ Dilation of Urethra, Via Natural or Artificial Opening Endoscopic (ICD-10-PCS; 2025-06-08 09:05)
DX: N40.1 Benign prostatic hyperplasia with lower urinary tract symptoms (principal); N13.8 Other obstructive and reflux uropathy; N39.0 Urinary tract infection, site not specified; R35.1 Nocturia; R31.9 Hematuria, unspecified; N35.919 Unspecified urethral stricture, male, unspecified site; N32.89 Other specified disorders of bladder; E66.9 Obesity, unspecified; I10 Essential (primary) hypertension; R21 Rash and other nonspecific skin eruption; E03.9 Hypothyroidism, unspecified; E11.9 Type 2 diabetes mellitus without complications; E78.5 Hyperlipidemia, unspecified; Z79.890 Hormone replacement therapy; D72.829 Elevated white blood cell count, unspecified; T38.0X5A Adverse effect of glucocorticoids and synthetic analogues, initial encounter; T36.5X5A Adverse effect of aminoglycosides, initial encounter; Y92.239 Unspecified place in hospital as the place of occurrence of the external cause; Z88.1 Allergy status to other antibiotic agents; Z88.0 Allergy status to penicillin; Z79.84 Long term (current) use of oral hypoglycemic drugs; Z85.46 Personal history of malignant neoplasm of prostate
CPT/HCPCS: 36415; 71046; 74420; 80048; 82948; 83735; 85025; 87086; 88305; 93005; 94799; 96372; C1758; J0360; J0692; J1100; J1200; J1580; J1815; J1938; J1956; J2250; J2405; J2470; J7030

== ENCOUNTER → 2025-06-27 | Day surgery (SDC) | payer OTHER ==
[~2025-06-27] MED LIST changes: +FINASTERIDE5 MG PO; +GLUCAGON FOR INJ 1 MG VIAL ONE; +LACTATED RINGER'S 1,000 ML ONE; +LIDOCAINE HCL 2% LOCAL INJ 5 ML SDV VIAL INJ ONE; +PROPOFOL IV EMULSION 10 MG/ML 20 ML VIAL ONE; +PROPOFOL IV EMULSION 50 ML IV ONE
[2025-06-27 09:52] VITALS: TEMP 98.4
[2025-06-27 10:04] VITALS: BP 137/84; PULSE 57; RESP 18; O2SAT 98
== END | disposition home or self-care (01) ==
LOC: OR 06:54
PROVIDERS: ATTEND Internal Medicine Gastroenterology
DX: Z12.11 Encounter for screening for malignant neoplasm of colon (principal); K63.5 Polyp of colon; K57.30 Diverticulosis of large intestine without perforation or abscess without bleeding; K64.8 Other hemorrhoids; Z80.0 Family history of malignant neoplasm of digestive organs; E66.813 Obesity, class 3; I10 Essential (primary) hypertension; E78.5 Hyperlipidemia, unspecified; E11.9 Type 2 diabetes mellitus without complications; E03.9 Hypothyroidism, unspecified; N40.0 Benign prostatic hyperplasia without lower urinary tract symptoms; Z68.41 Body mass index [BMI] 40.0-44.9, adult; Z88.0 Allergy status to penicillin; Z88.1 Allergy status to other antibiotic agents; Z79.4 Long term (current) use of insulin; Z79.84 Long term (current) use of oral hypoglycemic drugs; Z79.890 Hormone replacement therapy; Z79.899 Other long term (current) drug therapy
CPT/HCPCS: 36415; 45380; 45385; 82948; J1610; J2003; J2704 ×2; J7121; 45378